=== PATIENT | female | born 1980 | race African-American/Black ===

== ENCOUNTER 2019-01-08 15:05 | Emergency (ER) | payer SELFPAY ==
[~2019-01-08] VITALS: Ht 167.6 cm; Wt 81.4 kg
[2019-01-08 15:17] VITALS: BP 111/60
== END 2019-01-08 16:50 | disposition home or self-care (01) ==
LOC: EMS 15:06
DX: S20.221A Contusion of right back wall of thorax, initial encounter (principal); W22.8XXA Striking against or struck by other objects, initial encounter; Y93.89 Activity, other specified; Y92.89 Other specified places as the place of occurrence of the external cause; Y99.0 Civilian activity done for income or pay